=== PATIENT | male | born 1960 | race Caucasian/White ===

== ENCOUNTER 2023-08-10 17:17 | Emergency (ER) | payer OTHER, MEDICARE, SELFPAY ==
[2023-08-10 17:25] VITALS: BP 154/79; PULSE 63; RESP 16; TEMP 36.9; O2SAT 98; BMI 22.6
--- NOTE | 2023-08-10 17:34 | ECG_ITS ---
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 Repeat ECG is requested 9110 normal ECG No previous ECG available for comparison Electronically Signed On 08-11-2023 7:08:18 EDT by DIANA CULVER
[2023-08-10 17:54] LABS: Basophils Absolute Auto 0.1 10^3/uL (0.0-0.1); Basophils Percent Auto 1.5 % (0.2-2.0); Eosinophils Absolute Auto 0.2 10^3/uL (0.0-0.7); Eosinophils Percent Auto 2.9 % (0.9-7.0); Hematocrit 42.5 % (42.0-54.0); Hemoglobin 13.8 g/dL (14.0-18.0); Immature Granulocytes Abs Auto 0.01 10^3/uL (0.00-0.03); Immature Granulocytes Pct Auto 0.2 % (0.0-0.5); Lymphocytes Absolute Auto 1.7 10^3/uL (1.2-3.8); Mean Corpuscular HGB Conc 32.5 g/dL (29.9-35.2); Mean Corpuscular Hemoglobin 29.3 pg (25.9-34.0); Mean Corpuscular Volume 90.2 fL (80.0-94.0); Mean Platelet Volume 11.4 fL (9.5-13.5); Monocytes Absolute Auto 0.7 10^3/uL (0.3-0.8); Monocytes Percent Auto 11.9 % (1.7-12.0); Neutrophils Absolute Auto 2.9 10^3/uL (1.4-6.5); Neutrophils Percent Auto 52.5 % (43.0-75.0); Platelet Count 223 10^3/uL (150-450); Red Blood Count 4.71 10^6/uL (4.70-6.10); Red Cell Distribution Width 12.6 % (11.0-15.0); White Blood Count 5.5 10^3/uL (4.0-11.0)
[2023-08-10] MEDS: 0.9 % SODIUM CHLORIDE 1,000 ML 999 ML IV (18:03)
[2023-08-10 18:06] LABS: Ammonia 34 umol/L (11-32)
[2023-08-10 18:10] LABS: Alanine Aminotransferase 28 U/L (16-63); Albumin Globulin Ratio 0.9; Albumin Level 3.3 g/dL (3.4-5.0); Alkaline Phosphatase 74 U/L (46-116); Anion Gap 10.5; Aspartate Amino Transferase 59 U/L (15-37); BUN Creatinine Ratio 18.9; Bilirubin Total 0.4 mg/dL (0.2-1.0); Calcium 8.7 mg/dL (8.5-10.1); Carbon Dioxide 31.3 mmol/L (21.0-32.0); Chloride 104 mmol/L (98-107); Estimated GFR (African America >60 (>=60); Estimated GFR (Non-African Ame >60 (>=60); Ethanol <3 mg/dL; Globulin 3.6 g/dL; Glucose 90 mg/dL (74-106); Potassium 3.8 mmol/L (3.5-5.1); Sodium 142 mmol/L (136-145); Total Protein 6.9 g/dL (6.4-8.2)
[2023-08-10 18:10] LABS: Bilirubin Urine NEGATIVE (NEGATIVE); Blood Urine LARGE (NEGATIVE); Clarity Urine CLEAR (CLEAR); Color Urine YELLOW (YELLOW); Glucose Urine UA NEGATIVE (NEGATIVE); Ketones Urine NEGATIVE (NEGATIVE); Leukocyte Esterase Urine NEGATIVE (NEGATIVE); Nitrite Urine NEGATIVE (NEGATIVE); Protein Urine TRACE mg/dL (NEG/TRACE); Specific Gravity Urine 1.025 (1.005-1.025); Urobilinogen Urine >=8.0 EU/dL (0.2-1.0)
[2023-08-10 18:11] LABS: Urine Microscopic Indicated YES
--- NOTE | 2023-08-10 18:12 | ED_ITS ---
HPI - Altered Mental Status General Chief Complaint: Altered Mental Status Stated Complaint: CONFUSION Time Seen by Provider: 08/10/23 17:23 Source: family Mode of arrival: walk-in Limitations: no limitations History of Present Illness HPI narrative: patient brought in by family who told us that the patient has not been acting like himself . He has schizophrenia and it is not clear if he has taken too much of his psych meds or if he has missed doses. He has no focal complaints but also cannot give a good ROS. said he has not been drinking fluids like he normally does for the past few days. Sometimes when that happens his behavior is affected. also told me that the patient is not good about taking his medications on a regular basis frequently misses doses. She said that she will work with him to ensure that he is taking his medications as prescribed. She does not suspect any intoxicants and the patient stays with his sister during days when the works and the sister did not report any injury or worrisome behavior/activity Related Data Home Medications Medication Instructions Recorded Confirmed aripiprazole 10 mg tablet 10 mg PO BEDTIME 08/10/23 08/10/23 clonazepam 1 mg tablet 1 mg PO TID PRN anxiety 08/10/23 08/10/23 divalproex 500 mg tablet,extended 1,000 mg PO DAILY 08/10/23 08/10/23 release 24 hr levetiracetam 750 mg tablet 750 mg PO BID 08/10/23 08/10/23 Allergies Allergy/AdvReac Type Severity Reaction Status Date / Time No Known Drug Allergies Allergy Verified 08/10/23 17:25 [facility] Social History Smoking status: Heavy tobacco smoker Exam Narrative Exam Narrative: Nurses notes and vital signs reviewed and patient is not hypoxic. afebrile General: Well-appearing and in no apparent distress. Skin: Warm, dry, no pallor noted. No rash. Head: Normocephalic, atraumatic. Neck: Supple, non-tender. Eye: Pupils are equal, round and EOMI. No scleral icterus. Ears, Nose, Mouth, and Throat: TM are clear, no nasal mucosal hypertrophy. Oral mucosa is moist, no posterior oropharynx erythema, uvula is mid-line Cardiovascular: Regular Rate and Rhythm without murmur, gallop or rub. Respiratory: No accessory muscle use or respiratory distress. Lungs are clear to auscultation, no wheezing, rales or rhonchi Chest Wall: no tenderness Back: No midline thoracic or lumbar vertebral tenderness. No CVA tenderness Musculoskeletal: normal ROM, no calf or popliteal tenderness, no lower extremity edema/swelling GI: Abdomen is soft, non-distended. Normal bowel sounds. No masses appreciated. No tenderness to palpation. No rebound, guarding, or rigidity noted. Neurological: A&O x4. No cranial nerve dysfunction observed. No truncal ataxia. Moves all extremities. Sensation intact. Psychiatric: Cooperative and interactive. Normal mood and affect. Constitutional Vital Signs, click to edit/add: Last Vital Signs Temp 98.4 F 08/10/23 17:25 Pulse 63 08/10/23 17:25 Resp 16 08/10/23 17:25 BP 154/79 H 08/10/23 17:25 Pulse Ox 98 08/10/23 17:25 Course Vital Signs Vital signs: Vital Signs Temperature 98.4 F 08/10/23 17:25 Pulse Rate 63 08/10/23 17:25 Respiratory Rate 16 08/10/23 17:25 Blood Pressure 154/79 H 08/10/23 17:25 Pulse Oximetry 98 08/10/23 17:25 Temperature 98.4 F 08/10/23 17:25 Pulse Rate 63 08/10/23 17:25 Respiratory Rate 16 08/10/23 17:25 Blood Pressure 154/79 H 08/10/23 17:25 Pulse Oximetry 98 08/10/23 17:25 MDM - Altered Mental Status MDM Narrative Medical decision making narrative: Patient was placed on air sampling and monitoring and EKG obtained. Blood drawn and sent for evaluation. The patient's BUN was elevated, which is consistent with the 's fear of possible dehydration. He had a slight elevation of one of his liver function tests and his ammonia level but I do not think that this is a daily indicator of why he is behaving slightly differently. He received a liter of normal saline IV fluid and his behavior actually improved. I talked with the and she will take the patient home. I talked to the patient he is agreeable to have the help him with his medications. He should discharged home upon completion of the NS IVF bolus. Lab Data Attestation: I reviewed the patient's lab results. Labs: Lab Results 08/10/23 08/10/23 Range/Units 17:42 17:55 WBC 5.5 (4.0-11.0) 10^3/uL RBC 4.71 (4.70-6.10) 10^6/uL Hgb 13.8 L (14.0-18.0) g/dL Hct 42.5 (42.0-54.0) % MCV 90.2 (80.0-94.0) fL MCH 29.3 (25.9-34.0) pg MCHC 32.5 (29.9-35.2) g/dL RDW 12.6 (11.0-15.0) % Plt Count 223 (150-450) 10^3/uL MPV 11.4 (9.5-13.5) fL Neut % (Auto) 52.5 (43.0-75.0) % Lymph % (Auto) 31.0 (20.5-60.0) % [place] % (Auto) 11.9 (1.7-12.0) % Eos % (Auto) 2.9 (0.9-7.0) % Baso % (Auto) 1.5 (0.2-2.0) % Neut # (Auto) 2.9 (1.4-6.5) 10^3/uL Lymph # (Auto) 1.7 (1.2-3.8) 10^3/uL [place] # (Auto) 0.7 (0.3-0.8) 10^3/uL Eos # (Auto) 0.2 (0.0-0.7) 10^3/uL Baso # (Auto) 0.1 (0.0-0.1) 10^3/uL Abs Immat Gran (auto) 0.01 (0.00-0.03) 10^3/uL Imm/Tot Granulo (auto) 0.2 (0.0-0.5) % Sodium 142 (136-145) mmol/L Potassium 3.8 (3.5-5.1) mmol/L Chloride 104 (98-107) mmol/L Carbon Dioxide 31.3 (21.0-32.0) mmol/L Anion Gap 10.5 BUN 20.0 H (7.0-18.0) mg/dL Creatinine 1.06 (0.70-1.30) mg/dL Est GFR ( Amer) >60 (>=60) Est GFR (Non-Af Amer) >60 (>=60) BUN/Creatinine Ratio 18.9 Glucose 90 (74-106) mg/dL Calcium 8.7 (8.5-10.1) mg/dL Total Bilirubin 0.4 (0.2-1.0) mg/dL AST 59 H (15-37) U/L ALT 28 (16-63) U/L Alkaline Phosphatase 74 (46-116) U/L Ammonia 34 H (11-32) umol/L Total Protein 6.9 (6.4-8.2) g/dL Albumin 3.3 L (3.4-5.0) g/dL Globulin 3.6 g/dL Albumin/Globulin Ratio 0.9 Urine Color Yellow (YELLOW) Urine Clarity Clear (CLEAR) Urine pH 7.0 (5.0-9.0) Ur Specific [place] 1.025 (1.005-1.025) Urine Protein Trace (NEG/TRACE) mg/dL Urine Glucose (UA) Negative (NEGATIVE) mg/dL Urine Ketones Negative (NEGATIVE) mg/dL Urine Occult Blood Large A (NEGATIVE) Urine Nitrite Negative (NEGATIVE) Urine Bilirubin Negative (NEGATIVE) Urine Urobilinogen >=8.0 (0.2-1.0) EU/dL Ur Leukocyte Esterase Negative (NEGATIVE) Urine RBC 5-10 A (0-2) #/HPF Urine WBC 0-2 A (NONE SEEN) #/HPF Ur Squamous Epith Cells Few A (NONE/RARE) #/LPF Urine Crystals None seen (None Seen) #/HPF Urine Bacteria Trace A (NONE SEEN) #/HPF Urine Casts Seen A (NONE SEEN) #/LPF Hyaline Casts Rare Urine Mucus Trace A (NONE SEEN) Ur Culture Indicated? No Urine Opiates Screen Negative (NEGATIVE) Ur Buprenorphine Scrn Negative (NEGATIVE) Ur Oxycodone Screen Negative (NEGATIVE) Urine Methadone Screen Negative (NEGATIVE) Ur Propoxyphene Screen Negative (NEGATIVE) Ur Barbiturates Screen Negative (NEGATIVE) U Tricyclic Antidepress Negative (NEGATIVE) Ur Phencyclidine Scrn Negative (NEGATIVE) Ur Amphetamines Screen Negative (NEGATIVE) U Methamphetamines Scrn Negative (NEGATIVE) U Benzodiazepines Scrn Negative (NEGATIVE) Urine Cocaine Screen Negative (NEGATIVE) U Cannabinoids Screen Negative (NEGATIVE) Ethanol Quant <3 mg/dL ECG Data Interpretation: EKG interpretation: Emergency Department physician interpretation. V2 is missing. Normal sinus rhythm at 65bpm. Normal axis, normal intervals and no ST segment elevation or depression. Discharge Plan Discharge Chief Complaint: Altered Mental Status Clinical Impression: Acute dehydration, Acute renal insufficiency, Hyperammonemia, Altered mental status Patient Disposition: Home, Self-Care Time of Disposition Decision: 18:50 Prescriptions / Home Meds: No Action levetiracetam 750 mg tablet 750 mg PO BID aripiprazole 10 mg tablet 10 mg PO BEDTIME clonazepam 1 mg tablet 1 mg PO TID PRN (Reason: anxiety) divalproex 500 mg tablet extended release 24 hr 1,000 mg PO DAILY Instructions: Dehydration (ED), Altered Mental Status (ED) Stand Alone Forms: Portal Instructions Referrals: Karan Power MD [Primary Care Provider] - 1 week
[2023-08-10 18:22] LABS: Amphetamine Screen Urine NEGATIVE (NEGATIVE); Barbiturates Screen Urine NEGATIVE (NEGATIVE); Benzodiazepines Screen Urine NEGATIVE (NEGATIVE); Buprenorphine Screen Urine NEGATIVE (NEGATIVE); Cannabinoid Screen Urine NEGATIVE (NEGATIVE); Cocaine Screen Urine NEGATIVE (NEGATIVE); Methadone Screen Urine NEGATIVE (NEGATIVE); Methamphetamines Screen Urine NEGATIVE (NEGATIVE); Opiate Screen Urine NEGATIVE (NEGATIVE); Oxycodone Screen Urine NEGATIVE (NEGATIVE); Phencyclidine Screen Urine NEGATIVE (NEGATIVE); Tricyclic Antidepressant Urine NEGATIVE (NEGATIVE)
[2023-08-10 18:26] LABS: Cast Seen? SEEN #/LPF (NONE SEEN); Crystals Seen? None Seen #/HPF (None Seen); Hyaline Casts Urine RARE; Mucus Urine TRACE (NONE SEEN); Squamous Epithelial Cell Urine FEW #/LPF (NONE/RARE); WBC Urine 0-2 #/HPF (NONE SEEN)
[2023-08-10 18:27] LABS: Bacteria Urine TRACE #/HPF (NONE SEEN); Urine Culture Indicated NO
== END 2023-08-10 19:12 | disposition home or self-care (01) ==
PROVIDERS: Emergency Provider Emergency Medicine; PCP Family Medicine
DX: E86.0 Dehydration (principal); R41.82 Altered mental status, unspecified; N28.9 Disorder of kidney and ureter, unspecified; E72.20 Disorder of urea cycle metabolism, unspecified; F20.9 Schizophrenia, unspecified; Z79.899 Other long term (current) drug therapy; F17.210 Nicotine dependence, cigarettes, uncomplicated
CPT/HCPCS: 36415; 80053; 80307; 80320; 81001; 82140; 85025; 93005; 96360; 99285

== ENCOUNTER 2025-03-04 15:00 | Emergency (ER) | payer OTHER, MEDICARE, SELFPAY ==
[2025-03-04] VITALS (12 sets, daily range): BP systolic 137–149; BP diastolic 68–71; PULSE 79–85; TEMP 36.9; O2SAT 92–100; BMI 31.0
--- NOTE | 2025-03-04 15:02 | ECG_ITS ---
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 Measurements Intervals [place] Rate: 82 P: 65 MT: 154 QRS: 88 QRSD: 100 T: 68 QT: 382 QTc: 421 Interpretive Statements 1100 Sinus rhythm 9110 normal ECG Compared to ECG 08/10/2023 17:25:48 T-wave abnormality no longer present Sinus arrhythmia no longer present Electronically Signed On 03-04-2025 18:45:00 EDT by IKE PRYOR M.D.
--- NOTE | 2025-03-04 15:03 | ED.AMS1 ---
HPI - Altered Mental Status General Chief Complaint: Altered Mental Status Stated Complaint: alter mental status Time Seen by Provider: 03/04/25 15:02 Source: patient Mode of arrival: ambulance History of Present Illness HPI narrative: Patient is a pleasant 64-year-old male with a history of schizophrenia presents to the emergency department after neighbor called 911. Patient was apparently found outside looking for his dog, neighbors were concerned and called for an ambulance to bring him to the ER for altered mental status. On arrival, the patient is alert and oriented to person, place, time. He states he is here today in the emergency department because he is having trouble sleeping. He states he has been taking his medications. EMS states that the patient has been off of his schizophrenic medications. Patient is calm, cooperative. He is not suicidal or homicidal. Related Data Home Medications ?Medication ?Instructions ?Recorded ?Confirmed aripiprazole 10 mg tablet 10 mg PO BEDTIME 08/10/23 08/10/23 clonazepam 1 mg tablet 1 mg PO TID PRN anxiety 08/10/23 08/10/23 divalproex 500 mg tablet,extended 1,000 mg PO DAILY 08/10/23 08/10/23 release 24 hr levetiracetam 750 mg tablet 750 mg PO BID 08/10/23 08/10/23 Allergies Allergy/AdvReac Type Severity Reaction Status Date / Time No Known Drug Allergies Allergy Verified 08/10/23 17:25 Review of Systems ROS Status of ROS unobtainable due to mental status Constitutional Denies: fever or chills Cardiovascular Denies: chest pain Respiratory Denies: shortness of breath Gastrointestinal Denies: vomiting Neurological Reports: other (Patient states he is here because he is having trouble sleeping); Denies: headache Hematologic/Lymphatic Denies: easy bruising or easy bleeding PFSH PFS Social History Smoking status: Heavy tobacco smoker Little interest or pleasure in doing things: not at all Feeling down, depressed, or hopeless: not at all Exam Narrative Exam Narrative: Gen.: Awake, alert, in no distress Head: Normocephalic, atraumatic ENT: Moist mucous membranes Respiratory: No respiratory distress, lungs clear bilaterally Cardio: Regular rate and rhythm Gastrointestinal: Abdomen is soft, nondistended and nontender to palpation Extremities: Moves extremities equally Psych: Normal mood and affect Neuro: No focal neuro deficit, patient alert and oriented to person, place, time; No unilateral weakness noted Skin: Warm, dry, intact Constitutional Vital Signs, click to edit/add: Last Vital Signs Temp 98.4 F 03/04/25 15:01 Pulse 85 03/04/25 16:26 Resp 25 H 03/04/25 16:26 BP 149/71 H 03/04/25 16:27 Pulse Ox 95 03/04/25 16:10 O2 Del Method Room Air 03/04/25 15:01 Course Vital Signs Vital signs: Vital Signs Temperature 98.4 F 03/04/25 15:01 Pulse Rate 84 03/04/25 15:01 Respiratory Rate 18 03/04/25 15:01 Blood Pressure 137/68 03/04/25 15:01 Pulse Oximetry 92 L 03/04/25 15:01 Oxygen Delivery Method Room Air 03/04/25 15:01 Temperature 98.4 F 03/04/25 15:01 Pulse Rate 85 03/04/25 16:26 Respiratory Rate 25 H 03/04/25 16:26 Blood Pressure 149/71 H 03/04/25 16:27 Pulse Oximetry 95 03/04/25 16:10 Oxygen Delivery Method Room Air 03/04/25 15:01 MDM - Altered Mental Status MDM Narrative Medical decision making narrative: Patient is calm and cooperative in the emergency department. CT of the brain, chest x-ray, EKG, laboratory studies reviewed and noted within normal limits. Patient has no other focal medical complaints in the ER. His presented to the emergency department and states that the patient is at his baseline. The neighbors called 911 because that is what she has instructed them to do in the past for any concerning behavior, however the patient typically stays with his sister when the patient's is at work. They left him at home today, and he went outside to look for his dog. Patient's states he is compliant with his medications, he receives an intramuscular injection to manage his schizophrenia. Patient's states he has not had any bizarre or concerning behavior, she states he has been slow around the home, but this is typical for him with the cycles of his medication. She feels comfortable following up with their therapist at [facility], she will touch base with the nurse practitioner who manages his medications. She states she does not believe he needs to be hospitalized. She would like to take him home and follow-up as an outpatient. They understand they can return to the emergency department at any time if his symptoms change. SUPERVISED APC VISIT, PHYSICIAN ATTESTATION: Based on the medical record the care appears appropriate. ? Medical Records Attestation: I reviewed the patient's medical records. Lab Data Attestation: I reviewed the patient's lab results. Labs: Lab Results 03/04/25 Range/Units 15:12 WBC 6.6 (4.0-11.0) 10^3/uL RBC 4.81 (4.70-6.10) 10^6/uL Hgb 14.1 (14.0-18.0) g/dL Hct 42.7 (42.0-54.0) % MCV 88.8 (80.0-94.0) fL MCH 29.3 (25.9-34.0) pg MCHC 33.0 (29.9-35.2) g/dL RDW 12.4 (11.0-15.0) % Plt Count 267 (150-450) 10^3/uL MPV 10.8 (9.5-13.5) fL Neut % (Auto) 64.0 (43.0-75.0) % Lymph % (Auto) 21.8 (20.5-60.0) % [place] % (Auto) 10.2 (1.7-12.0) % Eos % (Auto) 2.6 (0.9-7.0) % Baso % (Auto) 1.2 (0.2-2.0) % Neut # (Auto) 4.2 (1.4-6.5) 10^3/uL Lymph # (Auto) 1.4 (1.2-3.8) 10^3/uL [place] # (Auto) 0.7 (0.3-0.8) 10^3/uL Eos # (Auto) 0.2 (0.0-0.7) 10^3/uL Baso # (Auto) 0.1 (0.0-0.1) 10^3/uL Abs Immat Gran (auto) 0.01 (0.00-0.03) 10^3/uL Imm/Tot Granulo (auto) 0.2 (0.0-0.5) % PT 11.2 (9.0-11.6) sec INR 1.06 Sodium 142 (136-145) mmol/L Potassium 3.4 L (3.5-5.1) mmol/L Chloride 108 H (98-107) mmol/L Carbon Dioxide 27.1 (21.0-32.0) mmol/L Anion Gap 10.3 BUN 21.0 H (7.0-18.0) mg/dL Creatinine 1.15 (0.70-1.30) mg/dL Est GFR ( Amer) >60 (>=60 mL/min/1.73m^2) Est GFR (Non-Af Amer) >60 (>=60 mL/min/1.73m^2) BUN/Creatinine Ratio 18.3 Glucose 101 (74-106) mg/dL Calcium 9.1 (8.5-10.1) mg/dL Total Bilirubin 0.6 (0.2-1.0) mg/dL AST 135 H (15-37) U/L ALT 64 H (16-63) U/L Alkaline Phosphatase 84 (46-116) U/L Ammonia 35 H (11-32) umol/L Troponin I High Sens 12.5 (4.0-76.1) pg/mL Total Protein 7.2 (6.4-8.2) g/dL Albumin 3.4 (3.4-5.0) g/dL Globulin 3.8 g/dL Albumin/Globulin Ratio 0.9 TSH 1.418 (0.358-3.740) uIU/mL Salicylates <2.8 (<=19.9) mg/dL Acetaminophen <2.0 L (10.0-30.0) ug/mL Ethanol Quant <3 mg/dL Imaging Data CT scan - head: Attestation: I have reviewed the pertinent imaging results. Chest x-ray: Attestation: I have reviewed the pertinent imaging results. ECG Data Attestation: I personally reviewed and interpreted this ECG as follows: (Normal sinus rhythm at a rate of 82, no acute ST elevation or ectopy. No EKG changes. EKG reviewed by attending physician) Discharge Plan Discharge Chief Complaint: Altered Mental Status Clinical Impression: Feared complaint without diagnosis, Schizophrenia Patient Disposition: Home, Self-Care Time of Disposition Decision: 16:27 Condition: Good Prescriptions / Home Meds: No Action levetiracetam 750 mg tablet 750 mg PO BID aripiprazole 10 mg tablet 10 mg PO BEDTIME clonazepam 1 mg tablet 1 mg PO TID PRN (Reason: anxiety) divalproex 500 mg tablet extended release 24 hr 1,000 mg PO DAILY Print Language: Gambian Instructions: Schizophrenia (ED) Referrals: Karan Power MD [Primary Care Provider, Family Practice] - 1 week Discharge Date/Time: 03/04/25 16:34
[2025-03-04 15:19] LABS: Basophils Absolute Auto 0.1 10^3/uL (0.0-0.1); Basophils Percent Auto 1.2 % (0.2-2.0); Eosinophils Absolute Auto 0.2 10^3/uL (0.0-0.7); Eosinophils Percent Auto 2.6 % (0.9-7.0); Hematocrit 42.7 % (42.0-54.0); Hemoglobin 14.1 g/dL (14.0-18.0); Immature Granulocytes Abs Auto 0.01 10^3/uL (0.00-0.03); Immature Granulocytes Pct Auto 0.2 % (0.0-0.5); Lymphocytes Absolute Auto 1.4 10^3/uL (1.2-3.8); Lymphocytes Percent Auto 21.8 % (20.5-60.0); Mean Corpuscular Hemoglobin 29.3 pg (25.9-34.0); Mean Corpuscular Volume 88.8 fL (80.0-94.0); Mean Platelet Volume 10.8 fL (9.5-13.5); Monocytes Absolute Auto 0.7 10^3/uL (0.3-0.8); Monocytes Percent Auto 10.2 % (1.7-12.0); Neutrophils Absolute Auto 4.2 10^3/uL (1.4-6.5); Platelet Count 267 10^3/uL (150-450); Red Blood Count 4.81 10^6/uL (4.70-6.10); Red Cell Distribution Width 12.4 % (11.0-15.0); White Blood Count 6.6 10^3/uL (4.0-11.0)
[2025-03-04 15:29] LABS: Ammonia 35 umol/L (11-32)
[2025-03-04 15:39] LABS: INR 1.06; Prothrombin Time 11.2 sec (9.0-11.6)
[2025-03-04 15:52] LABS: Acetaminophen <2.0 ug/mL (10.0-30.0); Alanine Aminotransferase 64 U/L (16-63); Albumin Globulin Ratio 0.9; Albumin Level 3.4 g/dL (3.4-5.0); Alkaline Phosphatase 84 U/L (46-116); Anion Gap 10.3; Aspartate Amino Transferase 135 U/L (15-37); BUN Creatinine Ratio 18.3; Bilirubin Total 0.6 mg/dL (0.2-1.0); Calcium 9.1 mg/dL (8.5-10.1); Carbon Dioxide 27.1 mmol/L (21.0-32.0); Chloride 108 mmol/L (98-107); Estimated GFR (African America >60 (>=60 mL/min/1.73m^2); Estimated GFR (Non-African Ame >60 (>=60 mL/min/1.73m^2); Ethanol <3 mg/dL; Globulin 3.8 g/dL; Glucose 101 mg/dL (74-106); Potassium 3.4 mmol/L (3.5-5.1); Salicylate <2.8 mg/dL (<=19.9); Sodium 142 mmol/L (136-145); Thyroid Stimulating Hormone 1.418 uIU/mL (0.358-3.740); Total Protein 7.2 g/dL (6.4-8.2); Troponin I High Sensitivity 12.5 pg/mL (4.0-76.1)
--- NOTE | 2025-03-04 16:21 | PC.NURSE ---
Pt presents to ER via EMS after neighbors saw him wandering outside and called EMS Pt has a hx of schizophrenia-bipolar Pt states he takes injections for his mental health but has not been sleeping well pt is a&ox4 and cooperative with staff Pt's arrives an hour later and states patient is up to date on his Meds and his mental status is his baseline at this time pt's states he usually is not left alone at home but today he was and the dog took off in the yard- neighbors have been told before to watch out for him, they called in concern for his safety Pt and his are in aberrance that if medical clearance is completed that he can go home with his
== END 2025-03-04 16:34 | disposition home or self-care (01) ==
PROVIDERS: Physician Assistant; Emergency Provider Emergency Medicine; PCP Family Medicine
DX: F20.9 Schizophrenia, unspecified (principal); R41.82 Altered mental status, unspecified; F17.200 Nicotine dependence, unspecified, uncomplicated
CPT/HCPCS: 36415; 70450; 71045; 80053; 80179; 80307; 80320; 80329; 81001; 82140; 84443; 84484; 85025; 85610; 93005; 99285